=== PATIENT | female | born 1930 | race Caucasian/White ===

== ENCOUNTER 2016-03-31 23:45 | Inpatient (IN) | payer MEDICARE, OTHER ==
--- NOTE | ~2016-03-31 | US77 ---
[facility] A Service of [facility] RADIOLOGY TEXT RESULTS PATIENT: JOSE MULLIGAN LOCATION: [facility] 571-01 : 29 UNIT #: [id number] AGE: [address]: Tomasa Gonzalez MD SEX: F ORDER DR: [id number] [facility] [address] [place], [place] [address] [id number] MR#: [id number] #: [id number] NAME: JOSE MULLIGAN : 1930 SEX: F STUDY DATE/TIME: 04/01/2016 15:59 UNIT: [facility] ROOM: [facility] STUDY DESCRIPTION: US Kidney Bilateral Complete Attending Physician: Tomasa Gonzalez M.D. Ordering Physician: Reny Brady M.D. Primary Care Physician: Mildred Perdomo MEDICAL IMAGING REPORT This report is preliminary unless electronic signature is present EXAM Bilateral renal ultrasound HISTORY Acute renal insufficiency. Elevated creatinine. FINDINGS Ultrasound examination of both kidneys demonstrates simple cysts in the right kidney measuring up to 2 cm. No right hydronephrosis. No solid right renal mass. The right kidney measures approximately 10 cm in length. Evaluation of the left renal region demonstrates a large simple cyst, slightly lobulated, measuring at least 13 cm in maximal dimension. The left renal parenchyma is not clearly identified, but may be attenuated, about the periphery of this large left renal cyst. The left renal cyst appears similar to slightly larger than on CT 10/01/2008. Survey of the urinary bladder region demonstrates the bladder is not visible and is apparently decompressed. IMPRESSION 1. Large cyst in the left flank measuring at least 13 cm is likely a dominant left renal cyst corresponding to a similar finding on CT 10/01/2008. The left renal parenchyma may be attenuated about the periphery of this cyst but is poorly seen. 2. Incidental right renal cysts measure up to 2 cm. 3. The bladder is not visualized. Dictated by... Jaime Hollis M.D. [facility] A Service [facility] RADIOLOGY TEXT RESULTS PATIENT: JOSE MULLIGAN LOCATION: [facility] 571- : 29 UNIT #: [id number] AGE: [address]: Tomasa Gonzalez MD SEX: F ORDER DR: THIS IS AN ELECTRONICALLY VERIFIED REPORT Jaime Hollis M.D. at 04/02/2016 11:31 PM KOSTA/neva TD: 04/02/2016 01:37 JOB #: [id number] MEDICAL IMAGING REPORT COPY
--- NOTE | ~2016-03-31 | EKG ---
PATIENT: JOSE MULLIGAN UNIT #: [id number] Ventricular Rate: 81 BPM Atrial Rate: 81 BPM P-R Interval: 134 ms QRS Duration: 84 ms Q-T Interval: 354 ms QTC Calculation(Bezet): 411 ms P [place]: 51 degrees Calculated R [place]: -3 degrees Calculated T [place]: 54 degrees Diagnosis Line: Normal sinus rhythm Diagnosis Line: Low voltage QRS Diagnosis Line: Nonspecific ST abnormality Diagnosis Line: Abnormal ECG Diagnosis Line: No previous ECGs available Diagnosis Line: Confirmed by CARMENZA CRUZ MD ([id number]) on Diagnosis Line: 04/02/2016 5:05:33 PM INTERPRETING MD: FIONA
--- NOTE | ~2016-03-31 | A ---
[facility] Nutrition Therapy DATE: 04/04/16 Patient: JOSE MULLIGAN Physician: PEMA Address: [address] [place] [address] Room/Bed: [address] [place] [address], Zip: [place] [address] Admit Date: 04/01/16 Date of : 29 Height: Weight: 103 46.9 NUTRITIONAL ASSESSMENT: REASON: CONSULT RE: RECENT UNINTENTIONAL WEIGHT LOSS PMH: COPD, Osteoporosis Anthropometrics: Ht: 5'0"WT: 103 lbsBMI: 20.1 Labs: Na+ 140, K+ 3.0, Gluc 97 Meds: Ferrous gluconate, Vitamin B12, Vitamin D, Coumadin, Pepcid I/O & Bowel function: 695/1050 Skin Integrity: WNL Assessment: Pt is 86 year old female admitted for Hyperkalemia. Pt reports adequate PO intake prior to admission, recent unintentional weight loss of 25 lbs. Pt states weight loss was during previous admission, unable to describe time frame. Pt reports weight maintenance since discharge. Pt currently on Regular consistency diet, reports issues with chewing d/t missing teeth. Requested softer diet - will change to Dental Soft diet per MNT protocol. Pt agreed to Ensure supplements, will order. Encouraged adequate PO intake as tolerated. Pt may benefit from assistance with meals, tray set up. Dx: Inadequate nutrient intake r/t confusion/endentulous AEB reported recent unintentional weight loss Intervention: 1. Dental Soft diet 2. Ensure BID 3. Meds per MD Monitoring, Evaluation and Goals: 1. Encourage adequate PO Intake as tolerated (PO>50% of meals) 2. Prevent unintentional weight loss; maintain LBM Recommendations: 1. Change diet to Dental Soft diet 2. Add Ensure BID 3. Encourage adequate PO intake as tolerated 4. Provide assistance as needed with meals and set up [facility] Nutrition Therapy DATE: 04/04/16 Patient: JOSE MULLIGAN Physician: PEMA Address: [address] [place] [address] Room/Bed: [address] [place] [address], Zip: [place] [address] Admit Date: 04/01/16 Date of : 29 Height: Weight: 103 46.9 Will f/u per protocol - pt Moderate Nutritional Risk Respectfully, Maggy Ponce RD, LD Food and Nutritional Services [facility] cc: client file
--- NOTE | ~2016-03-31 | DS ---
Unit #: [id number] #: [id number] Patient: JOSE MULLIGAN [id number] [address] [address] [id number] I MR#: [id number] NAME: JOSE MULLIGAN ROOM: 571 Age: 86 Sex: F Admission Date: 04/01/2016 : 1930 Discharge Date: Attending Physician: Phoebe uTbbs M.D. Primary Care Physician: Mildred Perdomo DISCHARGE SUMMARY DISCHARGE DIAGNOSES 1. Hyperkalemia. 2. Toxic metabolic encephalopathy. 3. Acute kidney injury. 4. Pseudomonas urinary tract infection. 5. Iron deficiency anemia. 6. Hypokalemia during the hospitalization course. 7. History of deep vein thrombosis. The patient is not on Coumadin any more as per her family. 8. Chronic obstructive pulmonary disease. 9. History of meningioma. 10. Chronic venous stasis. 11. Osteoporosis. 12. Chronic immobility syndrome. 13. History of paroxysmal supraventricular tachycardia. 14. History of gout. 15. Gastroesophageal reflux disease. 16. 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 17. Hypomagnesemia. 18. Mild protein malnutrition. CONSULTATIONS Dr. Jorge Alberto Suarez. PROCEDURES The patient had EGD, which was normal. The patient did not go for colonoscopy because the patient is DNR and not a candidate for surgery. Therefore, colonoscopy examination is unwarranted as per gastroenterology, and her POA agreed for the plan. DIAGNOSTIC TESTING LAB DATA: WBC 7.2, hemoglobin 8.1, platelets 304. Potassium 4, sodium 140, potassium 3, creatinine 1.1, magnesium 1.5. Urine culture is growing Pseudomonas aeruginosa. Ferritin 119. IMAGING: Ultrasound of the kidneys shows large cyst in the left flank measuring 13 cm, likely dominant left renal cyst corresponding to similar findings on CT in 2008. ALLERGIES None. DISCHARGE MEDICATIONS 1. Symbicort 160 mcg 1 puff inhalation daily. Unit #: [id number] #: [id number] Patient: JOSE MULLIGAN 2. Metoprolol 25 p.o. daily. 3. Ferrous gluconate 324 p.o. daily. 4. Aspirin 81 daily. 5. Omeprazole 20 daily. 6. Visine 1 drop daily. 7. Vitamin D3 - 2,000 p.o. daily. 8. Vitamin B12 - 2,500 mcg p.o. every Sunday. 9. Levaquin 500 p.o. daily for 5 more days. HOSPITALIZATION COURSE An 86 year old admitted because of abnormal labs. Hyperkalemia. The patient was seen by Dr. Brady. The patient received calcium gluconate, IV insulin, D50 and Kayexalate. Currently potassium level is normal. Toxic metabolic encephalopathy. Secondary to Pseudomonas urinary tract infection. Currently mildly confused. She does have moderate dementia, also. Pseudomonas urinary tract infection. Sensitive to Levaquin. The patient was on IV Levaquin. The patient will be discharged home on 5 days of p.o. Levaquin. Anemia. Most likely iron deficiency. The patient had EGD, which was normal. The patient is not a candidate for colonoscopy because the patient is a DNR and nonsurgical candidate. Dr. Suarez and the family, POJose and niece, decided not to pursue colonoscopy. She will get iron tablets upon discharge. Hypokalemia during the hospitalization course. The patient received potassium. Hypomagnesemia. The patient received IV magnesium. COPD. Stable. GERD. Continue with omeprazole. History of gout. Her Allopurinol has been discontinued. DISCHARGE PLAN 1. The patient will be discharged home with home health. 2. Follow with family physician in 1 week for urinary tract infection and anemia. 3. I discussed with niece and POA. According to her, the patient is not on Coumadin any more for her remote history of DVT. initially Coumadin was in the medication list, but I discontinued it. The patient is not on Coumadin any longer. NOTE: Discharge time taken is 35 minutes. Dictated by... Phoebe Tubbs M.D. Unit #: [id number] #: [id number] Patient: JOSE MULLIGAN BIRGIT/cinda TD: 04/05/2016 10:52 JOB #: [id number] DISCHARGE SUMMARY X Phoebe Tubbs MD DISCHARGE SUMMARY
--- NOTE | ~2016-03-31 | OR ---
Unit #: [id number] #: [id number] Patient: JOSE MULLIGAN [id number] [facility]. [place], [place] [address] [id number] I MR#: [id number] NAME: JOSE MULLIGAN ROOM: 571 Date of Procedure: 04/03/2016 Admission Date: 04/01/2016 Surgeon: Jorge Alberto Suarez M.D. : 1930 Attending Physician: Phoebe Tubbs M.D. Primary Care Physician: Mildred Perdomo OPERATIVE REPORT PRIMARY CARE PHYSICIAN Mildred Perdomo A.P.R.N. PREOPERATIVE DIAGNOSIS Anemia. PROCEDURE PERFORMED Upper gastrointestinal endoscopy. POSTOPERATIVE DIAGNOSIS Completely normal examination up to third part of duodenum. RECOMMENDATIONS The patient is elderly and DNR and not a candidate for surgery. Therefore, colonoscopy examination is unwarranted. This was discussed at length with her niece, who is her POA. Suggest to manage the anemia with transfusions and supportive care as needed. SEDATION USED MAC. DESCRIPTION OF PROCEDURE Following detailed explanation of potential risks and complications of an upper endoscopy, namely perforation, bleeding and complications related to sedation, the patient was brought to GI lab and laid in the left lateral decubitus position. Lubricated tip of the Olympus video upper endoscope was passed through the bite block into the proximal esophagus under direct vision. The entire esophageal mucosa was examined and appeared normal. Z-line was nicely demarcated, there being no esophagitis or hiatus hernia. The scope was then advanced into the gastric cavity and the latter was insufflated. Mucosa of the fundus, body, and antrum was examined and appeared unremarkable. Pylorus was intubated with visualization of the normal duodenal bulb and second and third part of the duodenum. Upon withdrawal and retroflexion, the incisura, cardia, and greater curve were examined and no additional findings noted. The scope was then withdrawn into distal esophagus. The entire esophageal mucosa was examined all the way up to pharynx and no additional findings noted. The patient tolerated the procedure without any postprocedural complications. Dictated by... Jorge Alberto Suarez M.D. Unit #: [id number] #: [id number] Patient: JOSE MULLIGAN AK/angela TD: 04/04/2016 06:01 JOB #: [id number] CC: Tomasa Gonzalez M.D. OPERATIVE REPORT X Jorge Alberto Suarez MD PROCEDURE OPERATIVE NOTE
--- NOTE | ~2016-03-31 | CO ---
Unit #: [id number] #: [id number] Patient: JOSE MULLIGAN [id number] [place], [place] [address] [id number] I MR#: [id number] NAME: JOSE MULLIGAN ROOM: 571 Age: 86 Sex: F Admission Date: 04/01/2016 : 1930 Attending Physician: Tomasa Gonzalez M.D. Primary Care Physician: Mildred Perdomo Consultation Date: 04/02/2016 CONSULTATION REPORT REASON FOR CONSULTATION Anemia. HISTORY OF PRESENT ILLNESS Ms. Mulligan is an 86-year-old white female, who was admitted from home, because of abnormal labs drawn by the [facility]. Her potassium was found to be 7.6. Since after admission, she has been treated with insulin and Kayexalate and her current hemoglobin is now 4.1. During to the process, her hemoglobin has dropped from 9.5 to 7.5. The patient denies any history of overt GI bleed in the form of hematemesis, melena, or hematochezia. There is no history of abdominal pain; although, she has mild upper abdominal discomfort variably related to meals. PAST MEDICAL HISTORY Significant for history of COPD, chronic venous stasis of the legs, osteoporosis, history of supraventricular tachycardia, and history of pyelonephritis. PAST SURGICAL HISTORY Included a hysterectomy, cholecystectomy, appendectomy, open reduction of right arm, cataract extraction, left tibia and fibula fracture, left carpal tunnel release. MEDICATIONS At home included Lasix, Mobic, Symbicort, metoprolol, omeprazole, aspirin, vitamin D3, Coumadin, allopurinol, ciprofloxacin, potassium, acetaminophen, and vitamin B12. ALLERGIES No known drug allergies. SOCIAL HISTORY Lives at home. Does not smoke or drink alcohol. FAMILY HISTORY None of colon, pancreatic cancer, or liver disease. REVIEW OF SYSTEMS Detailed review of organ system does not reveal any recent weight loss. The patient denies any history of fever, chills, or rigors. No history of recent falls. No history of cough, expectoration, or hemoptysis. No history of dysuria, hematuria, or pyuria. No history of focal seizures or extremity weakness. Unit #: [id number] #: [id number] Patient: JOSE MULLIGAN PHYSICAL EXAMINATION GENERAL: She is awake and alert. She does have a slurred speech, but this is at baseline. VITAL SIGNS: Stable with a temperature of 98.3, pulse is 97 per minute and regular, respiratory rate is 12 per minute, blood pressure is 97/49. She weighs 100 pounds. HEENT: She has mild pallor. There being no icterus, lymphadenopathy, or peripheral edema. CARDIOVASCULAR: Normal heart sounds. No murmurs on auscultation. LUNGS: Reveal normal breath sounds. Good air entry. ABDOMEN: Soft, but there is a firmish feeling in the epigastric area. The patient says that this area is little bit tender; however, there is no exquisite tenderness, rigidity, rebound, or guarding. Liver and spleen not palpable. Bowel sounds normal. DIAGNOSTIC STUDIES LABORATORY RESULTS: Shows an admission hemoglobin of 9.5 and now it is 7.5. It is most likely due to hemodilution as the patient did have IV fluids after hospitalization. The BUN and creatinine are normal. CLINICAL IMPRESSION The drop in hemoglobin is most likely hemodilutional, also there is little clinical suggestion of overt GI bleed. Suggesting stool studies for occult blood and consider an upper endoscopy tomorrow. The patient is clearly not a surgical candidate and a colonoscopy is not warranted. The above plan was discussed with Ms. Mulligan and she was reassured. Thank you for asking me to see this pleasant woman. I appreciate the consult. Dictated by... Iesha Young/angela TD: 04/02/2016 13:42 JOB #: [id number] CC: Tomasa Gonzalez M.D. CONSULTATION REPORT X Jorge Alberto Suarez MD X CONSULTATION REPORT
--- NOTE | ~2016-03-31 | CO ---
Unit #: [id number] #: [id number] Patient: JOSE MULLIGAN [id number] [facility]. [place], [place] [address] [id number] I MR#: [id number] NAME: JOSE MULLIGAN ROOM: 571 Age: 86 Sex: F Admission Date: 04/01/2016 : 1930 Attending Physician: Tomasa Gonzalez M.D. Primary Care Physician: Mildred Perdomo Consultation Date: 04/01/2016 CONSULTATION REPORT REASON FOR CONSULT Hyperkalemia. Thank you very much for asking us to see this patient in consultation. HISTORY OF PRESENT ILLNESS Ms. Jose Mulligan is an 86-year-old female with a history of paroxysmal SVT, history of DVT in the past, who is here in the hospital in 02/2016 where she had UTI and some encephalopathy related to that. She was noted upon during that hospitalization to have creatinine increased a little bit during the hospitalization, but improved down to 0.7 upon discharge on 02/26/2016, although did get as high as 1.7. During the hospitalization again, she was treated for a UTI. She was discharged, I think, initially to rehab and then apparently she was at home. She had labs done by [facility] and apparently noted potassium in the mid 7s and prompted her to come to the emergency room. She was noted to have potassium of 7.6 here, increased up to 7.8. She was treated with multiple medications. Repeat potassium was 7.2, and we ordered medications as well and then I was consulted today. She actually is alert and oriented. She denies any chest pain, shortness of breath, nausea, or vomiting. PAST MEDICAL HISTORY History of PSVT, history of DVT, history of hypertension, history of UTI, history of gout, history of gastroesophageal reflux disease, history of some underlying mild dementia, history of acute delirium, history of degenerative disk disease, history of COPD. ALLERGIES No known drug allergies. SOCIAL HISTORY Previous smoker, stopped in 1997. No alcohol. MEDICATIONS It sounds like she was on Lopressor either once a day or b.i.d., KCl 40 mEq a day, vitamin D daily, B12 daily, Cipro or Levaquin there when she was here in the hospital in February unsure if it was stopped or not, Lasix 20 mg b.i.d., allopurinol 300 mg a day, Mobic, omeprazole 20 mg a day, and Coumadin. FAMILY HISTORY Noncontributory. REVIEW OF SYSTEMS Unit #: [id number] #: [id number] Patient: JOSE MULLIGAN She is actually alert again. Denies any headaches, dizziness, visual problems, or sinus problems. No cough or hemoptysis. No neck pain or neck stiffness. No chest pain or palpitations. No severe shortness of breath. No abdominal pain, nausea, vomiting, or diarrhea. No urinary symptoms. No lower extremity swelling. No recent seizures or strokes. No skin rashes. PHYSICAL EXAMINATION GENERAL: She is alert and oriented. VITAL SIGNS: Temperature is 98.3, pulse 61, respirations 13, blood pressure 70 to 126 over 40s to 60s. HEENT: She is normocephalic, atraumatic. Pupils are equal, round, and reactive to light. Extraocular muscles are intact. Hearing appears normal. Mouth is clear. No erythema. NECK: Supple. No adenopathy. CARDIAC: She is tachycardic without a rub. No S3 or S4. LUNGS: Clear bilaterally. No wheezes, rhonchi, or rales. ABDOMEN: Bowel sounds positive. Nontender. Soft. No masses felt. No hepatomegaly noted. EXTREMITIES: She has no significant lower extremity swelling. Her pulses are intact in lower extremities. SKIN: No rashes. NEUROLOGIC: Grossly intact. : Deferred. DIAGNOSTIC STUDIES LABORATORY RESULTS: Sodium initially of 134, potassium 7.6, chloride is 107, bicarb is 18, BUN of 22, creatinine 1.4, glucose of 109, calcium is 9.0. TSH is 1.05. Hemoglobin 9.5, white count 8500, platelets 156,000. UA shows specific gravity of 1.012, 2 to 5 rbc's, 5 to 10 wbc's. Culture is pending. Today's lab showed a BUN of 18, creatinine 1.3, glucose 71, bicarb is 15, calcium was 10.0, magnesium is 1.9, her potassium 7.2. ASSESSMENT AND PLAN 1. Hyperkalemia. The patient with increased potassium still although slightly better, but elevated. She is tachycardic, but her monitor does not show peaked T-waves. She has received multiple medications for this hyperkalemia several times in the emergency room. Last just recently given was calcium gluconate, IV insulin, D50, Kayexalate. Hope we will recheck a stat BMP in about 3 hours and hopefully potassium continues to come down. If worsens or is not improving, we will have to consider emergent hemodialysis. Discussed this with the patient. She agrees. Certainly, the hyperkalemia is related to her potassium pills probably intravascularly depleted, questionable Mobic, as well as her acidosis all contributing. We should be able to get it down with treatment. 2. Acute renal insufficiency. Creatinine is a little bit better. She does look a little prerenal on exam, also was on Lasix and Mobic at home. It could be contributing. We will start her on some IV fluids with bicarb. Check a bladder scan postvoid residual. Check a renal ultrasound. Check urinary studies also, rule out interstitial nephritis from quinolones. We will discontinue her allopurinol and PPI for now, switched over to Pepcid. 3. History of urinary tract infection, culture pending. 4. History of deep venous thrombosis, on Coumadin. 5. History of supraventricular tachycardia. Thank you very much. Unit #: [id number] #: [id number] Patient: JOSE MULLIGAN Dictated by.Morgan Brady M.D. LISA/angela TD: 04/02/2016 04:29 JOB #: [id number] CONSULTATION REPORT X Slim Brady MD X CONSULTATION REPORT
--- NOTE | ~2016-03-31 | HP ---
Unit #: [id number] #: [id number] Patient: JOSE MULLIGAN [id number] [facility]. [place], [place] [address] [id number] I MR#: [id number] NAME: JOSE MULLIGAN ROOM: 34249 Age: 86 Sex: F Admission Date: 04/01/2016 : 1930 Attending Physician: Tomasa Gonzalez M.D. Primary Care Physician: Mildred Perdomo HISTORY AND PHYSICAL HISTORY OF PRESENT ILLNESS The patient is an 86-year-old female who was discharged in February 2016 and later on readmitted. Today she came into the emergency room for abnormal labs. She was sent here for abnormal by [facility]. Per [facility] staff, potassium was 7.6. On evaluation in the emergency room, her potassium was elevated as such. She has been seen by the apartment rental clerk since she was admitted and she did receive calcium gluconate, Regular insulin, Kayexalate and bolus and amp of D50. The patient denies any chest pain, no headache, or shortness of breath or difficulty breathing. She has a history of COPD with supraventricular tachycardia, who was admitted back in February for pyelonephritis and altered mental status metabolic encephalopathy. She denies any pain or complaints at this time. PAST MEDICAL HISTORY Significant for: 1. COPD. 2. Meningioma. 3. Chronic venous stasis of her leg. 4. Osteoporosis. PAST SURGICAL HISTORY 1. Appendectomy. 2. Cholecystectomy. 3. Hysterectomy. 4. Open reduction internal fixation of right arm. 5. Cataract extraction. 6. Left carpal tunnel release. 7. Left tib-fib fracture. HOME MEDICATIONS Include: 1. Lasix 20 mg p.o. b.i.d. 2. Mobic 7.5 mg p.o. daily. 3. Symbicort 160/4.5 one puff inhalation daily. 4. Metoprolol tartrate 25 mg p.o. daily. 5. Omeprazole 20 mg p.o. daily. 6. Aspirin 81 mg p.o. daily. 7. Vitamin D3 2000 units p.o. daily. 8. Visine one drop each eye daily. 9. Coumadin 1 mg p.o. daily. 10. Allopurinol 300 mg p.o. daily. 11. Ciprofloxacin 500 mg p.o. daily. 12. Potassium 14 mEq p.o. daily. Unit #: [id number] #: [id number] Patient: JOSE MULLIGAN 13. Acetaminophen. 14. Vitamin B12. ALLERGIES No known drug allergies. SOCIAL HISTORY Lives alone. History of smoking. Denies any alcohol use. FAMILY HISTORY Noncontributory. REVIEW OF SYSTEMS Limited at this time. Patient is a poor historian, however denies any pain at this time. PHYSICAL EXAMINATION VITAL SIGNS: Blood pressure 126/50, pulse 60, respiratory 16, temperature 97.1, saturation 97% on oxygen. GENERAL: She was comfortable, pleasant, very pale in appearance. EYES: Pupils were equal and reacted to light and accommodation. Pupils were 4 mm bilateral, bilaterally symmetrical and equal. LUNGS: Breath sounds along the bases posteriorly. HEART: First and second heart sounds only. ABDOMEN: Full, moves with respirations, soft. No hepatosplenomegaly that I could appreciate. EXTREMITIES: Mild edema. NEUROLOGIC: Alert and oriented x2. Moves all extremities spontaneously. Looking very weak. DIAGNOSTIC STUDIES LABORATORY: Chemistries with glucose 71, BUN 18, creatinine 1.3, sodium 140, potassium 7.2, chloride 120, bicarbonate 15. She had CBC with WBC of 8.4, hemoglobin 9.5, hematocrit 29.5, platelet count 156. ASSESSMENT AND PLAN 1. Hyperkalemia. Nephrology has been consulted. She has received D50. Etiology may include the potassium pills that she is taking in addition to her Lasix in addition to her acute renal failure. 2. Debility. 3. History of urinary tract infection. 4. History of paroxysmal supraventricular tachycardia. PLAN 1. Follow up with nephrology. 2. Follow up with her labs in the morning. 3. CBC and BMP in the morning as ordered. 4. CODE STATUS: Unable to determine at this time. Dictated by Tomasa Gonzalez M.D. Unit #: [id number] #: [id number] Patient: JOSE MULLIGAN KODI/jim TD: 04/01/2016 17:38 JOB #: [id number] HISTORY AND PHYSICAL X Tomasa Gonzalez MD HISTORY AND PHYSICAL
[~2016-03-31 23:45] MED LIST: ACETAMINOPHEN PO; ACETAMINOPHEN PR; ACETAMINOPHEN325 MG; ALLOPURINOL300 MG PO; AMOXICILLIN PO; ANTIVERT PO; ARTHRITIS PAIN650 M2 PO; ASPIRIN EC81 M1 PO; ASPIRIN PO; ASPIRIN81 MG PO; ASTHMACORT; AUGMENTIN875 M1 PO; AZMACORT20 GM INH; CALCIUM 500 + D1 TAB PO; CIPRO PO; COMBIVENT INH14.7 GM INH; COUMADIN PO; DARVOCET-N 1001 TAB PO; DEMADEX10 MG PO; DOXYCYCLINE150 MG PO; EC-NAPROSYN500 MG PO; ERYTHROMYCIN O3.5 GM OP; FOSAMAX PO; GAS-X166 MG PO; IMODIUM2 MG PO; KCL PO; KEFLEX PO; LASIX PO; LASIX20 MG PO; LEVAQUIN PO; LEVAQUIN750 MG PO; MEDROL PO; MELOXICAM15 MG PO; METOPROLOL TAR25 MG PO; METOPROLOL TART25 MG PO; MOBIC PO; NEXIUM PO; OMEPRAZOLE20 M1 PO; OMEPRAZOLE20 M2 PO; PERCOCET5/325 PO; PREDNISONE PO; ST JOSEPH ASPIR81 MG PO; SYMBICORT 160/4.6 G1 IH; SYMBICORT IH; SYMBICORT INH; TOBRAMYCIN-DEXAM5 M1 OP; TORSEMIDE PO; ULTRAM PO; VICODIN 5/500 T1 TAB PO; VISINE-A EYE DR15 M1 OP; VISINE15 ML OP; VISINE15 ML OU; VIT B-12 PO; VITAMIN A AND D PO; VITAMIN D-32000 UNI1 PO; VITAMIN D2000 UNIT PO; VITAMIN D32000 UNI1 PO
[2016-04-01 02:07] LABS: CALCIUM SERUM 9.4 mg/dL (8.4-10.2); CREATININE SERUM 1.4 mg/dL (0.6-1.4); GLOM FILT RATE Estimated 37.8 mL/min (>60)
[2016-04-01 02:09] LABS: POTASSIUM 7.8 mmol/L (3.5-5.1)
[2016-04-01 03:23] LABS: BASOPHIL% 0.6 % (0-2.5); EOSINOPHIL# 0.8 X10e3 (0-0.7); HEMATOCRIT 29.5 % (35.0-45.0); HEMOGLOBIN 9.5 gm/dL (12.0-16.0); LYMPHOCYTE# 2.2 X10e3 (1.0-3.5); LYMPHOCYTE% 26.6 % (17.0-45.0); MEAN CELL VOLUME 103.4 FL (83-96); MEAN CORPUSCULAR HEMOGLOBIN 33.5 PG (28-34); MEAN CORPUSCULAR HGB CONC 32.4 g/dL (30-36); MEAN PLATELET VOLUME 8.3 FL (6.5-11.5); MONOCYTE# 1.1 X10e3 (0-1.0); MONOCYTE% 13.7 % (3.0-12.0); NEUTROPHIL# 4.1 X10e3 (1.5-7.1); NEUTROPHIL% 49.1 % (40-75); PLATELET COUNT 156 X10e3 (140-420); RED BLOOD COUNT 2.85 X10e (3.90-5.30); RED CELL DISTRIBUTION WIDTH 15.5 % (11.0-15.5); WHITE BLOOD COUNT 8.4 X10e3 (4.0-10.5)
[2016-04-01 03:26] LABS: INR 1.1; PARTIAL THROMBOPLASTIN TIME 25.9 SECONDS (23.5-31.3); PROTHROMBIN TIME (PATIENT) 11.5 SECONDS (9.6-11.5)
[2016-04-01 03:29] LABS: DIFF IND NO
[2016-04-01 03:36] LABS: BUN/CREATININE RATIO 15.38; CALCIUM SERUM 9.4 mg/dL (8.4-10.2); CREATININE SERUM 1.3 mg/dL (0.6-1.4); GLOM FILT RATE Estimated 41.2 mL/min (>60)
[2016-04-01 03:44] LABS: POTASSIUM 7.2 mmol/L (3.5-5.1)
[2016-04-01 03:45] LABS: POC - CKMB 4.4 ng/mL (0.0-7.9); POC - TROPONIN <0.05 ng/mL (<=0.05)
[2016-04-01 09:55] LABS: URINE SOURCE CLEAN CATCH
[2016-04-01 09:56] LABS: BUN/CREATININE RATIO 13.84; CREATININE SERUM 1.3 mg/dL (0.6-1.4); GLOM FILT RATE Estimated 41.2 mL/min (>60)
[2016-04-01 10:00] LABS: URINE APPEARANCE CLEAR; URINE BILIRUBIN NEG (NEG); URINE BLOOD NEG (NEG); URINE COLOR YELLOW; URINE GLUCOSE NEG (NEG); URINE KETONE NEG (NEG); URINE LEUKOCYTE ESTERASE 2+ (NEG); URINE NITRATE NEG (NEG); URINE PROTEIN NEG (NEG); URINE SPECIFIC GRAVITY 1.012 (1.003-1.035); URINE UROBILINOGEN 0.2 MG/DL (NEG)
[2016-04-01 10:03] LABS: CULTURE INDICATED? YES; URINE BACTERIA AUWI NEG (NEGATIVE); URINE SQUAMOUS EPITHELIAL CELL OCC /[HPF]
[2016-04-01 10:20] LABS: POTASSIUM 7.2 mmol/L (3.5-5.1)
[2016-04-01 16:47] LABS: BUN/CREATININE RATIO 13.33; CREATININE SERUM 1.2 mg/dL (0.6-1.4); GLOM FILT RATE Estimated 45.2 mL/min (>60)
[2016-04-01 16:48] LABS: POTASSIUM 6.2 mmol/L (3.5-5.1)
[2016-04-02 00:16] LABS: BUN/CREATININE RATIO 10.83; CALCIUM SERUM 8.7 mg/dL (8.4-10.2); CREATININE SERUM 1.2 mg/dL (0.6-1.4); GLOM FILT RATE Estimated 45.2 mL/min (>60); POTASSIUM 4.8 mmol/L (3.5-5.1)
[2016-04-02 06:39] LABS: BASOPHIL% 0.5 % (0-2.5); EOSINOPHIL# 0.4 X10e3 (0-0.7); EOSINOPHIL% 4.7 % (0.0-7.0); HEMATOCRIT 22.9 % (35.0-45.0); HEMOGLOBIN 7.5 gm/dL (12.0-16.0); LYMPHOCYTE% 24.1 % (17.0-45.0); MEAN CELL VOLUME 101.3 FL (83-96); MEAN CORPUSCULAR HEMOGLOBIN 33.1 PG (28-34); MEAN CORPUSCULAR HGB CONC 32.7 g/dL (30-36); MEAN PLATELET VOLUME 7.6 FL (6.5-11.5); MONOCYTE# 1.2 X10e3 (0-1.0); MONOCYTE% 15.1 % (3.0-12.0); NEUTROPHIL# 4.5 X10e3 (1.5-7.1); NEUTROPHIL% 55.6 % (40-75); PLATELET COUNT 163 X10e3 (140-420); RED BLOOD COUNT 2.26 X10e (3.90-5.30); RED CELL DISTRIBUTION WIDTH 15.2 % (11.0-15.5); WHITE BLOOD COUNT 8.1 X10e3 (4.0-10.5)
[2016-04-02 06:50] LABS: DIFF IND NO
[2016-04-02 07:08] LABS: ALBUMIN SERUM 2.4 g/dL (3.5-5.0); BILIRUBIN,TOTAL 0.3 mg/dL (0.2-2.0); CALCIUM SERUM 8.4 mg/dL (8.4-10.2); CREATININE SERUM 1.3 mg/dL (0.6-1.4); GLOM FILT RATE Estimated 41.2 mL/min (>60); MAGNESIUM 1.2 mg/dL (1.6-3.0); PHOSPHOROUS 3.6 mg/dL (2.5-4.6); POTASSIUM 4.1 mmol/L (3.5-5.1); PROTEIN TOTAL SERUM 4.7 g/dL (6.0-8.3)
[2016-04-03 15:59] LABS: HEMATOCRIT 27.4 % (35.0-45.0); HEMOGLOBIN 8.8 gm/dL (12.0-16.0); MEAN CELL VOLUME 102.4 FL (83-96); MEAN CORPUSCULAR HEMOGLOBIN 32.8 PG (28-34); RED BLOOD COUNT 2.68 X10e (3.90-5.30); RED CELL DISTRIBUTION WIDTH 15.2 % (11.0-15.5); WHITE BLOOD COUNT 9.7 X10e3 (4.0-10.5)
[2016-04-03 16:11] LABS: MAGNESIUM 1.7 mg/dL (1.6-3.0)
[2016-04-03 16:15] LABS: INR 1.1; PROTHROMBIN TIME (PATIENT) 11.4 SECONDS (9.6-11.5)
[2016-04-03 16:17] LABS: BUN/CREATININE RATIO 10.83; CALCIUM SERUM 8.1 mg/dL (8.4-10.2); CREATININE SERUM 1.2 mg/dL (0.6-1.4); GLOM FILT RATE Estimated 45.2 mL/min (>60)
[2016-04-04 06:15] LABS: HEMATOCRIT 26.2 % (35.0-45.0); HEMOGLOBIN 8.5 gm/dL (12.0-16.0); MEAN CELL VOLUME 102.1 FL (83-96); MEAN CORPUSCULAR HGB CONC 32.3 g/dL (30-36); MEAN PLATELET VOLUME 6.7 FL (6.5-11.5); RED BLOOD COUNT 2.56 X10e (3.90-5.30); RED CELL DISTRIBUTION WIDTH 14.9 % (11.0-15.5); WHITE BLOOD COUNT 9.5 X10e3 (4.0-10.5)
[2016-04-04 06:43] LABS: INR 1.2; PROTHROMBIN TIME (PATIENT) 12.6 SECONDS (9.6-11.5)
[2016-04-04 07:10] LABS: BUN/CREATININE RATIO 10.9; CALCIUM SERUM 8.5 mg/dL (8.4-10.2); CREATININE SERUM 1.1 mg/dL (0.6-1.4); GLOM FILT RATE Estimated 49.9 mL/min (>60); MAGNESIUM 1.5 mg/dL (1.6-3.0); URIC ACID 3.8 mg/dL (2.6-7.2)
[2016-04-05 08:13] LABS: HEMATOCRIT 24.7 % (35.0-45.0); HEMOGLOBIN 8.1 gm/dL (12.0-16.0); MEAN CELL VOLUME 102.6 FL (83-96); MEAN CORPUSCULAR HEMOGLOBIN 33.6 PG (28-34); MEAN CORPUSCULAR HGB CONC 32.7 g/dL (30-36); MEAN PLATELET VOLUME 6.8 FL (6.5-11.5); RED BLOOD COUNT 2.41 X10e (3.90-5.30); WHITE BLOOD COUNT 7.2 X10e3 (4.0-10.5)
[2016-04-05 09:00] LABS: CALCIUM SERUM 8.9 mg/dL (8.4-10.2); GLOM FILT RATE Estimated 55.7 mL/min (>60); MAGNESIUM 1.6 mg/dL (1.6-3.0); POTASSIUM 3.4 mmol/L (3.5-5.1)
[2016-04-05] MEDS ORDERED: FERROUS GL324 ( 36 ) PO (15:05)
== END 2016-04-05 18:39 | disposition home health service (06) | DRG 640 ==
LOC: CED 23:45 → CEDOF 04-01 02:55 → C5C 04-01 17:59
PROVIDERS: Family Medicine; Internal Medicine; Internal Medicine Nephrology; Student in an Organized Health Care Education/Training Program
PROC: 0DJ08ZZ Inspection of Upper Intestinal Tract, Via Natural or Artificial Opening Endoscopic (ICD-10-PCS; principal; 2016-04-01)
DX: E87.5 Hyperkalemia (principal); G92 Toxic encephalopathy; N17.9 Acute kidney failure, unspecified; N39.0 Urinary tract infection, site not specified; I47.1 Supraventricular tachycardia; E44.1 Mild protein-calorie malnutrition; B96.5 Pseudomonas (aeruginosa) (mallei) (pseudomallei) as the cause of diseases classified elsewhere; D50.9 Iron deficiency anemia, unspecified; E87.6 Hypokalemia; Z86.718 Personal history of other venous thrombosis and embolism; J44.9 Chronic obstructive pulmonary disease, unspecified; I87.8 Other specified disorders of veins; M81.0 Age-related osteoporosis without current pathological fracture; M62.3 Immobility syndrome (paraplegic); K21.9 Gastro-esophageal reflux disease without esophagitis; F03.90 Unspecified dementia, unspecified severity, without behavioral disturbance, psychotic disturbance, mood disturbance, and anxiety; E83.42 Hypomagnesemia; M10.9 Gout, unspecified; Z90.710 Acquired absence of both cervix and uterus; Z90.49 Acquired absence of other specified parts of digestive tract; Z98.49 Cataract extraction status, unspecified eye; Z79.82 Long term (current) use of aspirin; Z79.01 Long term (current) use of anticoagulants; G30.9 Alzheimer's disease, unspecified; F02.80 Dementia in other diseases classified elsewhere, unspecified severity, without behavioral disturbance, psychotic disturbance, mood disturbance, and anxiety
CPT/HCPCS: 36415; 76770; 80048; 80053; 81003; 82550; 82553; 82728; 82947; 83540; 83550; 83735; 84100; 84132; 84300; 84484; 84550; 85025; 85027; 85610; 85730; 87086; 87088; 87186; 89190; 93005; 94640; 94664; 94760; 97116; 97162; 97166; 97530; 99285; G8978-GP; G8979-GP; G8987-GO; G8988-GO; J0610; J0696; J1940; J1956; J2916; J3475

== ENCOUNTER 2016-04-07 21:31 | Inpatient (IN) | payer MEDICARE, OTHER ==
--- NOTE | ~2016-04-07 | CR72 ---
[facility] A Service of [facility] & [facility] RADIOLOGY TEXT RESULTS PATIENT: JOSE MULLIGAN LOCATION: [place] [address] : 29 UNIT #: [id number] AGE: [address]: Kodi Holloway MD SEX: F ORDER DR: [id number] [facility] [address] [facility]. [place], [place] [address] [id number] MR#: [id number] Acc #: [id number] NAME: JOSE MULLIGAN : 1930 SEX: F STUDY DATE/TIME: 04/07/2016 21:38 UNIT: [facility] ROOM: STUDY DESCRIPTION: CR Chest Single View Portable Attending Physician: Jessica Loredo M.D. Ordering Physician: Jessica Loredo M.D. Primary Care Physician: Mildred Perdomo MEDICAL IMAGING REPORT This report is preliminary unless electronic signature is present EXAM Portable chest HISTORY Weakness after fall today. FINDINGS The cardiac size is near the upper limits of normal. Normal pulmonary vascularity. No airspace infiltrates or effusions. Degenerative changes in both shoulders. Calcified subcarinal nodes. Linear atelectasis or scarring in the right mid lung. Multiple right rib fracture deformities. IMPRESSION No acute findings. No active disease in the lungs. Dictated by... Jaime Hollis M.D. THIS IS AN ELECTRONICALLY VERIFIED REPORT Jaime Hollis M.D. at 04/08/2016 3:37 PM DFL/benton TD: 04/08/2016 01:31 JOB #: [id number] MEDICAL IMAGING REPORT COPY
--- NOTE | ~2016-04-07 | CT71 ---
[facility] A Service of [facility] RADIOLOGY TEXT RESULTS PATIENT: JOSE MULLIGAN LOCATION: [facility] [address] : 29 UNIT #: [id number] AGE: [address]: Deon Schroeder MD SEX: F ORDER DR: [id number] [facility] [address] [place], [place] [address] [id number] I MR#: [id number] Acc #: [id number] NAME: JOSE MULLIGAN : 1930 SEX: F STUDY DATE/TIME: 04/08/2016 0:38 UNIT: [facility] ROOM: 54349 STUDY DESCRIPTION: CT Head Wo Contrast Attending Physician: Kodi Holloway M.D. Ordering Physician: Jessica Loredo M.D. Primary Care Physician: Mildred Perdomo MEDICAL IMAGING REPORT This report is preliminary unless electronic signature is present EXAM CT head without IV contrast COMPARISON February 23, 2016 and October 07, 2008. INDICATIONS 86-year-old female with confusion and altered mental status after syncope today at which time she fell and hit her head. Patient reports current dizziness. TECHNIQUE This CT exam was performed with one or more of the following radiation dose reduction techniques: automatic control, adjustment of mA and/or kV according to patient size, and iterative reconstruction. FINDINGS There is diffuse osteopenia. There is a chronic small right mastoid effusion. Otherwise the mastoid air cells, middle ears and paranasal sinuses are well-aerated. There are calcifications in the bilateral cavernous internal carotid arteries. There is a rounded calcification inner table of the skull in the high right parietal region abutting the falx, possibly reflecting a calcified meningioma. This measures up to 1.5 cm. There is another calcium density extraaxial abutting the parietal lobe on the right measuring up to 7 mm, possibly representing an exostosis but partly calcified meningioma is suspected. There may be other partly calcified meningiomas versus dural calcification overlying the bilateral high frontal lobes. Multiple other calcifications along the inner table of the calvaria which actually appear to be contiguous with the calvaria likely reflecting exostoses. There is a persistent midline calcification just posterior to the pineal gland, possibly reflecting dural calcification or partly calcified meningioma, measuring up to 1.4 cm. There is stable moderate cerebral and cerebellar volume loss. No mass [facility] A Service of [facility] RADIOLOGY TEXT RESULTS PATIENT: JOSE MULLIGAN LOCATION: [facility] 462-01 : 29 UNIT #: [id number] AGE: [address]: Deon Schroeder MD SEX: F ORDER DR: effect. No abnormal extraaxial fluid collection. No evidence of acute intracranial hemorrhage. There are chronic bifrontal periventricular small vessel ischemic changes. No convincing evidence of acute ischemia. IMPRESSION 1. No acute intracranial abnormality. Stable moderate cerebral and cerebellar volume loss. 2. There are multiple exostoses of the inner table of the calvaria. However there are calcifications seen in the extraaxial space, 1 of which is posterior to the pineal gland the other which is in the high right parietal lobe measuring up to 1.4 cm and 1.5 cm respectively. These findings could possibly represent partially calcified meningiomas. If indicated outpatient brain MRI with IV contrast could be performed for further characterization. 3. Small chronic right mastoid effusion. Dictated by... Mitchell Martinez M.D. THIS IS AN ELECTRONICALLY VERIFIED REPORT Mitchell Martinez M.D. at 04/12/2016 7:32 AM GM/neva TD: 04/08/2016 06:38 JOB #: [id number] MEDICAL IMAGING REPORT COPY
--- NOTE | ~2016-04-07 | CO ---
Unit #: [id number] #: [id number] Patient: JOSE MULLIGAN [id number] [facility]. [place], [place] [address] [id number] I MR#: [id number] NAME: JOSE MULLIGAN ROOM: 462 Age: 86 Sex: F Admission Date: 04/08/2016 : 1930 Attending Physician: Deon Schroeder M.D. Primary Care Physician: Mildred Perdomo Consultation Date: 04/09/2016 CONSULTATION REPORT ATTENDING PHYSICIAN Dr. Kodi Holloway. PRIMARY CARE PHYSICIAN Mildred Perdomo APRN. REASON FOR CONSULTATION Nausea, vomiting, and diarrhea. HISTORY OF PRESENT ILLNESS Ms. Mulligan is a very pleasant 86-year-old white female, who was recently seen by me a week ago while she was in the hospital. Apparently, the patient fell at home and was brought to the emergency room by her niece, who supposed to be her POA. She brought the patient to the emergency room to be checked also that she does not have any fractures. Apparently, patient had a bout of nausea and vomiting in the emergency room and bout of diarrhea and she was thus admitted, and I am asked to see her because of these complaints. Since after admission, the patient has not had any bowel movement nor any nausea or vomiting. There is no history any prior GI symptoms. PAST MEDICAL HISTORY Significant for history of COPD, osteoporosis, supraventricular tachycardia, pyelonephritis, venous stasis of the legs. Recently, she was admitted with anemia and underwent an upper GI endoscopy and packed cell transfusion. PAST SURGICAL HISTORY Included a cholecystectomy, hysterectomy, appendectomy, open reduction of the right arm, cataract extraction, left tibia and fibular fracture, and left carpal tunnel release. MEDICATIONS At home included Lasix, Mobic, Symbicort, metoprolol, omeprazole, aspirin, vitamin D3, allopurinol, ciprofloxacin, potassium, acetaminophen, vitamin B12, and Coumadin. ALLERGIES She has no known drug allergies. SOCIAL HISTORY Normally, the patient lives at home, but currently she was at a rehab center. She does not smoke or drink alcohol. Unit #: [id number] #: [id number] Patient: JOSE MULLIGAN FAMILY HISTORY None of colon, pancreatic cancer, or liver disease. REVIEW OF SYSTEMS Detailed review of organ systems does not reveal any recent weight loss. No history of fever, chills, or rigors. No history of headache, seizures, chest pain, or syncope. There is history of recent falls as mentioned above. No history of cough, expectoration, or hemoptysis. No history of dysuria, hematuria, or pyuria. No history of focal seizures or extremity weakness. Rest of the review of organ systems is unremarkable. PHYSICAL EXAMINATION GENERAL: She is awake, alert, and oriented, and appears comfortable. VITAL SIGNS: Stable with a temperature of 98.1, pulse is 90 per minute and regular, respiratory rate is 18, and blood pressure is 133/68. HEENT: She has mild pallor. There being no icterus, lymphadenopathy, or peripheral edema. CARDIOVASCULAR: Normal heart sounds. No murmurs on auscultation. LUNGS: Normal breath sounds. Good air entry. ABDOMEN: Soft and nontender. Liver and spleen are not palpable. Bowel sounds normal. DIAGNOSTIC STUDIES LABORATORY RESULTS: Shows a stool study for C. diff, which is negative. Her hemoglobin is 7.3 with elevated MCV and this is close to baseline. CLINICAL IMPRESSION The patient with nausea, vomiting, and diarrhea, a single episode which has now not recurred. Her C. diff toxin is negative. Recent history of recurrent falls and history of macrocytic anemia. Detailed discussion was held with the patient's niece and it was felt that there is a little rhyme or reason to repeat her upper endoscopy. The patient is not a candidate for colonoscopy in view of the fact of her advanced age and the fact that she is not a surgical candidate, therefore suggest giving ferrous gluconate 250 mg IV for the next three doses. Also, repeat CBC and CMP in the morning. Just in case, if the patient has ongoing diarrhea, we will consider a limited sigmoidoscopy. Also, obtain stool studies for occult blood. Thank you very much for asking me to see this pleasant woman. I appreciate the consult. Dictated by... Iesha Young/angela TD: 04/14/2016 14:35 JOB #: [id number] Unit #: [id number] #: [id number] Patient: JOSE MULLIGAN CONSULTATION REPORT X Jorge Alberto Suarez MD CONSULTATION REPORT
--- NOTE | ~2016-04-07 | HP ---
Unit #: [id number] #: [id number] Patient: JOSE MULLIGAN [id number] [facility] [address]. [place], [place] [address] [id number] I MR#: [id number] NAME: JOSE MULLIGAN ROOM: 462 Age: 86 Sex: F Admission Date: 04/08/2016 : 1930 Attending Physician: Kodi Holloway M.D. Primary Care Physician: Mildred Perdomo HISTORY AND PHYSICAL DIAGNOSIS ON ADMISSION Diarrhea. HISTORY OF PRESENT ILLNESS Ozodgc-fmyjm-etwd-old female, presented to [facility] emergency room with hypertension. The patient stated that she had a fall at home yesterday and was not able to get up. As per the patient, her niece called the ambulance. The patient states that she is having diarrhea for the last two days which is getting worse. The patient states that she hurt her left elbow. But states that the pain is much better now. The patient denies any abdominal pain, nausea, and vomiting. But she is concerned about diarrhea which stated that she has gone kkzo-df-luqa times with loose stools. She denies any blood in her stools. She denies headache or visual problems. There is no history of sore throat, sinus congestion, or skin rash. The patient denies any recent weight loss or loss of appetite. Rest of the review of systems is negative. PAST MEDICAL HISTORY 1. The patient was admitted to [facility] from to 04/05/2016 and was treated for hyperkalemia, acute toxic metabolic encephalopathy and had a pseudomonas urinary tract infection. The patient also had an EGD done which was normal. 2. History of chronic obstructive pulmonary disease. 3. Meningitis. 4. Chronic venous insufficiency. 5. Chronic obstructive pulmonary disease. 6. Paroxysmal supraventricular tachycardia. 7. Gout. PAST SURGICAL HISTORY 1. Appendectomy. 2. Hysterectomy. 3. Cholecystectomy. 4. Right arm fracture and open reduction and internal fixation. 5. Cataract extraction. 6. Left carpal tunnel release. 7. Left fib fracture. ALLERGIES No known drug allergies. HOME MEDICATIONS 1. Symbicort 160/4.5 mcg one puff daily Unit #: [id number] #: [id number] Patient: JOSE MULLIGAN 2. Metoprolol 25 mg daily 3. Prilosec 20 mg daily 4. Enteric coated aspirin 81 mg p.o. daily 5. Vitamin D 2000 units daily 6. Visine eye drops 7. Vitamin B12 8. Ferrous gluconate SOCIAL HISTORY The patient lives alone. She denies smoking or drinking. FAMILY HISTORY Noncontributory. DIAGNOSTIC STUDIES LABORATORY: Labs on admission, the patient's creatinine is 1.3, sodium 143, potassium 4.4. BNP was 186. White blood count was 17.6, hemoglobin was 8.5. Platelet count was 349. Urine culture on 04/08 revealed (1) . IMAGING: CT scan of head did not reveal any acute finding. Chest x-ray did not reveal any acute finding. ASSESSMENT/PLAN Ysirrm-lbzjq-rrer-old female is admitted to the hospital with a fall and diarrhea. 1. Diarrhea. We need to rule out stool for C. difficile as the patient was started on antibiotics. We will currently treat the patient empirically with Flagyl. 2. Status post fall. We will ask physical therapy and occupational therapy to see the patient in consultation. 3. History of recent urinary tract infection. We will treat the patient with antibiotics. 4. Gastroesophageal reflux disease, will continue on Prilosec. 5. Chronic obstructive pulmonary disease, stable. The plan was discussed in detail with the patient who showed complete understanding. I tried to call the patient's niece. Dictated by Iesha Teague/deidre TD: 04/08/2016 12:42 JOB #: [id number] Unit #: [id number] #: [id number] Patient: JOSE MULLIGAN HISTORY AND PHYSICAL X Deon Schroeder MD HISTORY AND PHYSICAL
--- NOTE | ~2016-04-07 | DS ---
Unit #: [id number] #: [id number] Patient: JOSE MULLIGAN [id number] [facility] [address]. [place], [place] [address] [id number] I MR#: [id number] NAME: JOSE MULLIGAN ROOM: 462 Age: 86 Sex: F Admission Date: 04/08/2016 : 1930 Discharge Date: 04/13/2016 Attending Physician: Deon Schroeder M.D. Primary Care Physician: Mildred Perdomo DISCHARGE SUMMARY DIAGNOSIS ON ADMISSION Diarrhea. DIAGNOSES ON DISCHARGE 1. Diarrhea, secondary to acute colitis, improved. 2. Tachy/corazon syndrome. 3. Paroxysmal atrial fibrillation, converted to sinus rhythm. 4. Hypertension. 5. Recent acute pseudomonal urinary tract infection. 6. Paroxysmal atrial fibrillation. 7. Gastroesophageal reflux disease. 8. Chronic obstructive pulmonary disease. 9. History of fall. CONSULTATIONS 1. Dr. Lyon in cardiac consultation. 2. Dr. Jorge Alberto Suarez in GI consultation. DIAGNOSTIC STUDIES LABORATORY: The patient's creatinine is 0.7, sodium 138, potassium 4.1. WBC 6.6, hemoglobin 10.6, platelet count 220,000. The patient's stool for occult blood was negative. Stool for Clostridium difficile was negative. BNP was 186. IMAGING: Chest x-ray did not reveal any active disease. CT scan of head did not reveal any acute intracranial abnormality. There were multiple calcifications present which could represent calcified meningiomas. Left elbow x-ray did not reveal any acute finding. ASSESSMENT AND PLAN 1. An 86-year-old female presented to the [facility] with diarrhea. The patient was recently diagnosed with acute Pseudomonas urinary tract infection as well. Stool for Clostridium difficile came back negative. She was seen by Dr. Jorge Alberto Suarez in consultation but her diarrhea resolved and stool for Clostridium difficile is negative. 2. Acute Pseudomonas urinary tract infection: The patient has received IV antibiotics for acute Pseudomonas. 3. Tachy/corazon syndrome: The patient had tachycardia and bradycardia and it was thought she has tachy/corazon syndrome, was seen by Dr. Lyon in consult. She also was in atrial fibrillation. She was Unit #: [id number] #: [id number] Patient: JOSE MULLIGAN given amiodarone and has converted to sinus rhythm. It was decided that patient does not need any anticoagulation. 4. The patient's urine culture was done which revealed yeast. Today patient is comfortable, is not in any acute distress. PHYSICAL EXAMINATION VITAL SIGNS: Reveal temperature of 97.4, pulse is 94 per minute, respiratory rate is 14 per minute, blood pressure is 145/60. HEENT: Revealed no conjunctival congestion. Sclerae is nonicteric. NECK: Supple. Trachea central. RESPIRATORY: Revealed breath sounds equal bilaterally. There are no wheezes or crackles. HEART: Regular rate and rhythm. SKIN: Warm and dry. NEUROLOGIC: Strength is 4+ bilaterally. RECOMMENDATIONS ON DISCHARGE Condition is stable. Activity is as tolerated. MEDICATIONS 1. Symbicort one puff daily. 2. Amiodarone 200 mg b.i.d. for next three days and then one p.o. every morning. 3. Ferrous gluconate one tablet p.o. daily. 4. Enteric coated aspirin 81 mg p.o. daily. 5. Florastor 250 mg p.o. daily for one week. 6. Vitamin D3 at 2000 units daily. 7. Vitamin B12 at 2500 mcg p.o. q. week. 8. Diflucan 100 mg p.o. daily for three days. DISPOSITION The patient will be transferred to rehab. Please feel free to call us if there are any questions regarding this hospitalization. Please make note, the plan was discussed with Dr. Lyon. Dictated by... Iesha Teague TD: 04/13/2016 09:52 JOB #: [id number] DISCHARGE SUMMARY X Deon Schroeder MD X DISCHARGE SUMMARY
--- NOTE | ~2016-04-07 | EKG ---
PATIENT: JOSE MULLIGAN UNIT #: [id number] Ventricular Rate: 107 BPM Atrial Rate: 107 BPM P-R Interval: 122 ms QRS Duration: 80 ms Q-T Interval: 340 ms QTC Calculation(Bezet): 453 ms P [place]: 48 degrees Calculated R [place]: 4 degrees Calculated T [place]: 78 degrees Diagnosis Line: Sinus tachycardia with Premature supraventricular Diagnosis Line: complexes Diagnosis Line: Low voltage QRS Diagnosis Line: Nonspecific T wave abnormality Diagnosis Line: Abnormal ECG Diagnosis Line: When compared with ECG of 06-APR-2016 15:35, Diagnosis Line: Premature supraventricular complexes are now Diagnosis Line: Present Diagnosis Line: Confirmed by CARMENZA CRUZ MD ([id number]) on Diagnosis Line: 04/09/2016 10:36:02 PM INTERPRETING MD: FIONA
--- NOTE | ~2016-04-07 | CR93 ---
[facility] A Service of [facility] RADIOLOGY TEXT RESULTS PATIENT: JOSE MULLIGAN LOCATION: [place] [address] : 29 UNIT #: [id number] AGE: [address]: Kodi Holloway MD SEX: F ORDER DR: [id number] [facility] [address] [facility]. [place], [place] [address] [id number] MR#: [id number] #: [id number] NAME: JOSE MULLIGAN : 1930 SEX: F STUDY DATE/TIME: 04/07/2016 21:29 UNIT: [facility] ROOM: STUDY DESCRIPTION: CR Elbow Min 3 Views Lt Attending Physician: Jessica Loredo M.D. Ordering Physician: Jessica Loredo M.D. Primary Care Physician: Mildred Perdomo MEDICAL IMAGING REPORT This report is preliminary unless electronic signature is present EXAM Left elbow 3 views HISTORY Elbow pain after fall today. Elbow injury. FINDINGS 3 views of the left elbow demonstrate moderate degenerative changes. Satisfactory bone alignment. No fracture, or effusion. Mild generalized demineralization. IMPRESSION Degenerative changes in the elbow. No acute findings. Dictated by... Jaime Hollis M.D. THIS IS AN ELECTRONICALLY VERIFIED REPORT Jaime Hollis M.D. at 04/08/2016 3:36 PM DFL/neva TD: 04/08/2016 01:27 JOB #: [id number] MEDICAL IMAGING REPORT COPY
--- NOTE | ~2016-04-07 | CO ---
Unit #: [id number] #: [id number] Patient: JOSE MULLIGAN [id number] [facility] [address] [facility]. [place], [place] [address] [id number] MR#: [id number] NAME: JOSE MULLIGAN ROOM: 462 Age: 86 Sex: F Admission Date: 04/08/2016 : 1930 Attending Physician: Deon Schroeder M.D. Primary Care Physician: Mildred Perdomo Consultation Date: 04/10/2016 CONSULTATION REPORT REASON FOR CONSULTATION Paroxysmal supraventricular tachycardia and bradycardia. HISTORY OF PRESENT ILLNESS This is an 86-year-old white female, whom we had seen a couple of years ago here at [facility] for paroxysmal supraventricular tachycardia, had a Holter monitor at that time that showed some runs of SVT and multifocal atrial tachycardia. However, no pauses, blocks, no atrial fibrillation. The patient had a normal Lexiscan and back in 2013 along with echo in 2013 that shows LVEF of 55% with mild mitral regurgitation. The patient does have COPD, history of DVT about a year ago, but currently is not on anticoagulation. Recent hospitalization earlier this month for Pseudomonas urinary tract infection, acute kidney injury, toxic metabolic encephalopathy, anemia, and hyperkalemia. The patient was up at home trying to go from one room to the next using her walker and she says she just got very weak. Her right leg gave out. She fell and since discharge on the 04/05/2016, she was having some diarrhea at home, which the family thought was getting worse. The patient injured her elbow, but x-rays are negative for any fracture. She denied any abdominal pain, nausea, vomiting, however, she has had nausea and some dry heaving on this admission. There is no melena or hematochezia. No chest pain; pain in her neck, bilateral jaws, shoulders, arms, or elbow. She denies any palpitations, dizziness, presyncope, or syncopal episodes that caused the fall. No sore throat, chest or sinus congestion. Denies cough, fever, or chills. The patient was sent home from this facility as mentioned on 04/05/2016. Since admission, Dr. Suarez has seen the patient. An EGD was performed, it was normal on last admission, but the plans are if she continues to have diarrhea, she may need a flexible sigmoidoscopy. The patient did have a drop in her hemoglobin down as low was 7.3. She has received 2 units of packed red blood cells. Her stools are negative for acute blood and negative for any C difficile. Urine culture is coming back yeast. On telemetry, it showed a run of paroxysmal supraventricular tachycardia with heart rates to 180 to 200 and then later in the day yesterday, she had sinus bradycardia, heart rate as low as 37 beats per minute. The patient is on metoprolol once a day, which she did receive yesterday before the bradycardia. Cardiology has been consulted to assist with evaluation and management. PAST MEDICAL HISTORY 1. 01/2014 Lexiscan Cardiolite stress test with LVEF of 77%. No ischemia. No infarction. 2. 01/2014, 2D echo, LVEF of 55%, mild left ventricular hypertrophy, moderate septal hypokinesis, mild mitral regurgitation, mild tricuspid regurgitation with small pericardial effusion. Unit #: [id number] #: [id number] Patient: JOSE MULLIGAN 3. 24 hour Holter in 01/2014 after syncopal episode showed normal sinus rhythm with frequent premature atrial contractions, 36 runs of SVT, multifocal atrial tachycardia. No pauses. No blocks. No atrial fibrillation. 4. Degenerative joint disease, arthritis. 5. History of DVT about a year ago after a hip fracture, not on anticoagulation. 6. Chronic immobility syndrome. 7. History of diastolic dysfunction. 8. Chronic venostasis. 9. History of meningitis. 10. Gastroesophageal reflux disease. 11. History of paroxysmal supraventricular tachycardia. 12. 04/03/[address] Suarez was normal. 13. Recent hospitalization 04/01/2016 to 04/05/2016 for Pseudomonas UTI, acute kidney injury, toxic metabolic encephalopathy, anemia, with hyperkalemia. 14. COPD, reformed smoker. PAST SURGICAL HISTORY 1. 04/03/2016 EGD, which was normal. 2. Appendectomy. 3. Cholecystectomy. 4. Hysterectomy. 5. ORIF of the right arm fracture. 6. Cataract surgery. 7. Left carpal tunnel release. 8. Left tib-fib fracture. HOME MEDICATIONS Symbicort 160/4.5 mcg one puff inhalation daily, metoprolol 25 mg p.o. daily-according to the niece that was decreased down to half a tablet a day per MD2U recently, omeprazole 20 mg p.o. daily, aspirin 81 mg p.o. daily, vitamin D3 of 2000 units p.o. daily, Visine eye drops daily, vitamin B12 of 25 mcg p.o. every week, ferrous gluconate 325 mg 1 tablet daily. ALLERGIES No known drug allergies. SOCIAL HISTORY The patient lives in her home normally alone, but she has a niece that checks on her daily. She quit smoking in 1997. No alcohol or illicit drug abuse. FAMILY HISTORY She has a sister who had myocardial infarction, otherwise unremarkable. REVIEW OF SYSTEMS See details in HPI. PHYSICAL EXAMINATION GENERAL: On exam, Ms. Mulligan is an 86-year-old white female, in no acute respiratory distress. She is awake, alert, answers most questions appropriately. VITAL SIGNS: Blood pressure is 124/70, heart rate 72, respirations 16, temperature 98.8, O2 saturations 99% on 2 L. NECK: Trachea midline. No thyromegaly or lymphadenopathy. Normal Unit #: [id number] #: [id number] Patient: JOSE MULLIGAN carotid upstrokes. No jugular venous distention. HEART: S1, S2. Irregular rate and rhythm. Soft systolic murmur at left sternal border. LUNGS: Very diminished, otherwise clear. ABDOMEN: Soft, nontender. Positive bowel sounds present. No hepatosplenomegaly. EXTREMITIES: Pedal pulses are palpable. No pedal edema. DIAGNOSTIC STUDIES LABORATORY RESULTS: Glucose 91, BUN 11, creatinine 0.7, eGFR is above 60, sodium 143, potassium is down to 3.3, chloride 114, CO2 of 20, uric acid 3.8, calcium is 8.3, total protein 4.7, albumin 2.3, AST 13, ALT 11, alkaline phosphatase is 52. TSH on 03/31/2016 was 1.05. INR is 1.2. WBC is 7.1, hemoglobin 10.6, hematocrit 31.5, and platelets 227. Initial cardiac enzymes; CK-MB 1.7, troponin less than 0.05. CK-MB is 1.9, troponin less than 0.05 that was on early admission. Urinalysis, leuk esterase trace, urobilinogen 0.2, 10 to 25 wbc's, negative bacteria. Occult stool, negative for blood. Urine culture, final yeast present. Stool negative for C difficile. Degenerative changes in the elbows, otherwise nothing acute. IMAGING STUDIES: Chest x-ray, no acute findings, no active disease. CT of the head shows no acute intracranial abnormality, stable moderate cerebral and cerebellar volume loss. CARDIOVASCULAR STUDIES: EKG shows sinus tachycardia, heart rate 107 beats per minute, with frequent premature atrial complex, poor R-wave progression, low voltage in inferior leads. Telemetry shows some runs of paroxysmal supraventricular tachycardia and some runs of sinus bradycardia, heart rate as slow as 37 beats per minute. IMPRESSION 1. Status post fall, weakness. 2. Diarrhea. 3. 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 4. Recent admission for Pseudomonas urinary tract infection and acute kidney injury and anemia and hyperkalemia and toxic metabolic encephalopathy. 5. Acute anemia of questionable etiology. Normal esophagogastroduodenoscopy on 04/03/2016. 6. History of deep venous thrombosis about a year ago, not on anticoagulation. 7. 01/2014, 2D echo, left ventricular ejection fraction of 55%, mild mitral regurgitation, moderate septal hypokinesis, mild left ventricular hypertrophy. 8. Normal stress test in 01/2014, left ventricular ejection fraction of 77%. No ischemia. 9. Chronic venous stasis. 10. Gastroesophageal reflux disease. 11. Degenerative joint disease and arthritis. 12. Chronic obstructive pulmonary disease, reformed smoker. Unit #: [id number] #: [id number] Patient: JOSE MULLIGAN PLAN 1. Cardiology consult to assist with evaluation and managing her tachybrady syndrome. 2. The patient did have a low dose of metoprolol 25 mg, which seems to help the fast rate but then she did have a period of sinus bradycardia with heart rate 37 beats per minute. Discussed with the power of civil attorney, who is niece and also the patient about the possible need in the future for permanent pacemaker. The patient wants to talk to her power of civil attorney, her niece and nephew before making that decision. TSH was done earlier this month that was normal. We will stop the metoprolol at this point because of the significant bradycardia. 3. On exam, there were no signs or symptoms of acute congestive heart failure or unstable angina. 4. Plans are for possible scope today due to her anemia. She required 2 units of packed red blood cells. Her stool for occult blood was negative. At this time, we will hold off on any anticoagulation except for she is on baby aspirin 81 mg daily otherwise. The patient is currently on oxygen 2 L. We will check O2 saturation level. If it is greater than 92%, we will stop the oxygen. 5. The patient's potassium will be replaced per protocol. We will check her magnesium level today and follow protocol. 6. Further recommendations pending per Dr. Joshi. Thank you very much for allowing us to assist in her care. Dictated by... Ruthy Dorantes/angela TD: 04/10/2016 23:51 JOB #: [id number] CONSULTATION REPORT X Simran Gastelum APRN X CONSULTATION REPORT
--- NOTE | ~2016-04-07 | A ---
[facility] Therapy DATE: 04/10/16 Patient: JOSE MULLIGAN Physician: SAMIR Address: [address] [facility] Room/Bed: [address] [place] [address], Zip: [place] [address] Admit Date: 04/08/16 Date of : 29 Height: 5 0 Weight: 105 48 NUTRITIONAL ASSESSMENT: REASON: 3 points nutrition screen risk RE: 5# weight loss and eating poorly 86 yo female admitted for near syncope, diarrhea x 2 days, fall PMH: COPD, osteoporosis, HTN, meningitis, gout, chronic venous insufficiency, cholecystectomy, appendectomy, GERD Anthropometrics: Ht: 60" Wt: 48 kg BMI: 20.7 Labs: K+ 3.3 Cl- 114 Ca++ 8.3 Alb 2.3 Meds: Vitamin B12, NaCl, ferrous gluconate, Vitamin D, protonix, lopressor, zofran I/O & Bowel function: 2735/2234, last BM 04/09 Skin Integrity: Bruising scattered/ BUE/ BLE Scrapes/ discoloration BLE Blanchable redness BL heels/ coccyx/ labia Skin tear right chest Edema: BLE trace Estimated Nutrition Needs: Increased due to PMH Diet: NPO for procedure (flex sigmoidoscopy) Assessment: Chart reviewed, events noted. 86 yo female admitted for near syncope, fall, and diarrhea. Pt was recently discharged from [facility] 04/05. RD assessed the pt during that admission on 04/04, ordered her a dental soft diet per pt request (due to missing teeth), in addition to Ensure supplements BID. Pt is NPO for a flex sigmoidoscopy, planned for today. RD triggered to see the pt for 3 points nutrition screen risk for 5# weight loss and eating poorly. Per previous nutrition assessment on 04/04, pt reported weight maintenance despite points received for weight loss. New weight loss of 5# may be attributed to noted diarrhea. Pt's standing scale weight today is 106#, which is greater than her weight of 103# previous admission. RD spoke with the pt at bedside. Pt reporting that her only question is "When can I eat?". Pt seems to have a very good appetite at this time. Pt is agreeable to Ensure BID once her diet advances, and prefers a dental soft diet, as she has missing teeth. Dx: Potential for inadequate nutrient intake RT chewing difficulty AEB need for dental [facility] Therapy DATE: 04/10/16 Patient: JOSE MULLIGAN Physician: SAMIR Address: [address] [place] [address] Room/Bed: [address] [place] [address], Zip: [place] [address] Admit Date: 04/08/16 Date of : 29 Height: 5 0 Weight: 105 48 soft diet. Intervention: 1. Dental soft diet once diet advanced 2. Ensure BID Monitoring, Evaluation and Goals: 1. Oral intake; tolerate >50-75% meals 2. Labs; WNL 3. Weight; prevent unintentional weight loss 4. Skin; prevent breakdown Recommendations: 1. Once medically feasible following GI procedure, recommend advancing the pt to a dental soft diet as tolerated. Pt requesting dental soft diet due to missing teeth. 2. Once diet advanced, please order Ensure BID with meals for supplemental nutrition. Pt is at mild-moderate nutritional risk. Respectfully, JENS SHEEHAN RD, LD Food and Nutrition[facility] Services [facility] cc: client file
[~2016-04-07 21:31] MED LIST changes: +FERROUS GL324 ( 36 ) PO
[2016-04-07 22:44] LABS: BASOPHIL# 0.1 X10e3 (0-0.3); BASOPHIL% 0.3 % (0-2.5); DIFF IND YES; EOSINOPHIL% 0.3 % (0.0-7.0); HEMATOCRIT 27.2 % (35.0-45.0); HEMOGLOBIN 8.5 gm/dL (12.0-16.0); LYMPHOCYTE# 0.8 X10e3 (1.0-3.5); LYMPHOCYTE% 4.4 % (17.0-45.0); MEAN CELL VOLUME 103.1 FL (83-96); MEAN CORPUSCULAR HEMOGLOBIN 32.3 PG (28-34); MEAN CORPUSCULAR HGB CONC 31.3 g/dL (30-36); MEAN PLATELET VOLUME 6.5 FL (6.5-11.5); MONOCYTE# 1.1 X10e3 (0-1.0); MONOCYTE% 6.5 % (3.0-12.0); NEUTROPHIL# 15.6 X10e3 (1.5-7.1); NEUTROPHIL% 88.5 % (40-75); PLATELET COUNT 349 X10e3 (140-420); RED BLOOD COUNT 2.64 X10e (3.90-5.30); RED CELL DISTRIBUTION WIDTH 15.8 % (11.0-15.5); WHITE BLOOD COUNT 17.6 X10e3 (4.0-10.5)
[2016-04-07 22:49] LABS: POC - CKMB 1.7 ng/mL (0.0-7.9); POC - TROPONIN <0.05 ng/mL (<=0.05)
[2016-04-07 22:58] LABS: ANISOCYTOSIS SL; PLATELET ESTIMATE NORMAL (NORMAL)
[2016-04-07 23:00] LABS: BUN/CREATININE RATIO 10.76; CALCIUM SERUM 9.3 mg/dL (8.4-10.2); CREATININE SERUM 1.3 mg/dL (0.6-1.4); GLOM FILT RATE Estimated 41.2 mL/min (>60); POTASSIUM 4.4 mmol/L (3.5-5.1)
[2016-04-08 05:41] LABS: URINE APPEARANCE CLEAR; URINE BILIRUBIN NEG (NEG); URINE BLOOD NEG (NEG); URINE COLOR YELLOW; URINE GLUCOSE NEG (NEG); URINE KETONE NEG (NEG); URINE LEUKOCYTE ESTERASE TRACE (NEG); URINE NITRATE NEG (NEG); URINE PROTEIN NEG (NEG); URINE SPECIFIC GRAVITY 1.018 (1.003-1.035); URINE UROBILINOGEN 0.2 MG/DL (NEG)
[2016-04-08 05:44] LABS: CULTURE INDICATED? YES; URBCS1 AUWI 0-2 /[HPF] (0-2); URINE BACTERIA AUWI NEG (NEGATIVE); URINE SQUAMOUS EPITHELIAL CELL NONE SEEN /[HPF]
[2016-04-08 05:58] LABS: U HYALINE CASTS AUWI 0-2 /[LPF]
[2016-04-08 06:16] LABS: URINE SOURCE CLEAN CATCH
[2016-04-09 02:50] LABS: BASOPHIL% 0.5 % (0-2.5); EOSINOPHIL# 0.1 X10e3 (0-0.7); EOSINOPHIL% 1.3 % (0.0-7.0); HEMATOCRIT 23.1 % (35.0-45.0); HEMOGLOBIN 7.3 gm/dL (12.0-16.0); LYMPHOCYTE# 0.8 X10e3 (1.0-3.5); LYMPHOCYTE% 10.2 % (17.0-45.0); MEAN CELL VOLUME 103.3 FL (83-96); MEAN CORPUSCULAR HEMOGLOBIN 32.5 PG (28-34); MEAN CORPUSCULAR HGB CONC 31.5 g/dL (30-36); MEAN PLATELET VOLUME 6.7 FL (6.5-11.5); MONOCYTE% 13.5 % (3.0-12.0); NEUTROPHIL# 5.8 X10e3 (1.5-7.1); NEUTROPHIL% 74.5 % (40-75); PLATELET COUNT 273 X10e3 (140-420); RED BLOOD COUNT 2.24 X10e (3.90-5.30); RED CELL DISTRIBUTION WIDTH 16.2 % (11.0-15.5)
[2016-04-09 02:56] LABS: DIFF IND YES; WHITE BLOOD COUNT 7.7 X10e3 (4.0-10.5)
[2016-04-09 03:01] LABS: BLOOD UREA NITROGEN 12 mg/dL (9-23); BUN/CREATININE RATIO 13.33; CALCIUM SERUM 8.2 mg/dL (8.4-10.2); CARBON DIOXIDE 23 mmol/L (22-31); CHLORIDE 113 mmol/L (100-111); CREATININE SERUM 0.9 mg/dL (0.6-1.4); GLOM FILT RATE Estimated ABOVE60 mL/min (>60); GLUCOSE FASTING 89 mg/dL (70-110); POTASSIUM 3.5 mmol/L (3.5-5.1); SODIUM 143 mmol/L (135-145)
[2016-04-09 03:38] LABS: MICROCYTOSIS MOD; PLATELET ESTIMATE NORMAL (NORMAL); TARGET CELLS SL
[2016-04-09 03:39] LABS: ANISOCYTOSIS SL
[2016-04-10 05:51] LABS: BASOPHIL% 0.4 % (0-2.5); EOSINOPHIL# 0.1 X10e3 (0-0.7); EOSINOPHIL% 1.9 % (0.0-7.0); HEMATOCRIT 31.5 % (35.0-45.0); LYMPHOCYTE% 14.1 % (17.0-45.0); MEAN CORPUSCULAR HGB CONC 33.6 g/dL (30-36); MEAN PLATELET VOLUME 6.9 FL (6.5-11.5); MONOCYTE% 14.6 % (3.0-12.0); NEUTROPHIL# 4.9 X10e3 (1.5-7.1); PLATELET COUNT 227 X10e3 (140-420); RED BLOOD COUNT 3.31 X10e (3.90-5.30); RED CELL DISTRIBUTION WIDTH 18.9 % (11.0-15.5); WHITE BLOOD COUNT 7.1 X10e3 (4.0-10.5)
[2016-04-10 05:58] LABS: HEMOGLOBIN 10.6 gm/dL (12.0-16.0); MEAN CELL VOLUME 95.1 FL (83-96)
[2016-04-10 06:01] LABS: DIFF IND NO
[2016-04-10 06:26] LABS: ALBUMIN SERUM 2.3 g/dL (3.5-5.0); ALKALINE PHOSPHATASE 52 U/L (32-92); ALT (SGPT) 11 U/L (10-40); AST (SGOT) 13 U/L (10-42); BILIRUBIN,TOTAL 0.8 mg/dL (0.2-2.0); BLOOD UREA NITROGEN 11 mg/dL (9-23); BUN/CREATININE RATIO 15.71; CALCIUM SERUM 8.3 mg/dL (8.4-10.2); CARBON DIOXIDE 20 mmol/L (22-31); CHLORIDE 114 mmol/L (100-111); CREATININE SERUM 0.7 mg/dL (0.6-1.4); GLOM FILT RATE Estimated ABOVE60 mL/min (>60); GLUCOSE FASTING 91 mg/dL (70-110); POTASSIUM 3.3 mmol/L (3.5-5.1); PROTEIN TOTAL SERUM 4.7 g/dL (6.0-8.3); SODIUM 143 mmol/L (135-145)
[2016-04-11 03:19] LABS: HEMATOCRIT 33.6 % (35.0-45.0); HEMOGLOBIN 10.8 gm/dL (12.0-16.0); MEAN CORPUSCULAR HEMOGLOBIN 31.2 PG (28-34); MEAN CORPUSCULAR HGB CONC 32.2 g/dL (30-36); MEAN PLATELET VOLUME 7.5 FL (6.5-11.5); RED BLOOD COUNT 3.46 X10e (3.90-5.30); RED CELL DISTRIBUTION WIDTH 19.5 % (11.0-15.5); WHITE BLOOD COUNT 6.7 X10e3 (4.0-10.5)
[2016-04-11 04:01] LABS: BLOOD UREA NITROGEN 9 mg/dL (9-23); BUN/CREATININE RATIO 12.85; CARBON DIOXIDE 20 mmol/L (22-31); CHLORIDE 117 mmol/L (100-111); CREATININE SERUM 0.7 mg/dL (0.6-1.4); GLOM FILT RATE Estimated ABOVE60 mL/min (>60); GLUCOSE FASTING 91 mg/dL (70-110); POTASSIUM 3.6 mmol/L (3.5-5.1); SODIUM 143 mmol/L (135-145)
[2016-04-13 02:00] LABS: BASOPHIL% 0.7 % (0-2.5); EOSINOPHIL# 0.3 X10e3 (0-0.7); EOSINOPHIL% 4.7 % (0.0-7.0); HEMATOCRIT 32.5 % (35.0-45.0); HEMOGLOBIN 10.6 gm/dL (12.0-16.0); LYMPHOCYTE# 1.7 X10e3 (1.0-3.5); LYMPHOCYTE% 25.4 % (17.0-45.0); MEAN CELL VOLUME 95.8 FL (83-96); MEAN CORPUSCULAR HEMOGLOBIN 31.2 PG (28-34); MEAN CORPUSCULAR HGB CONC 32.6 g/dL (30-36); MONOCYTE# 1.3 X10e3 (0-1.0); MONOCYTE% 19.1 % (3.0-12.0); NEUTROPHIL# 3.3 X10e3 (1.5-7.1); NEUTROPHIL% 50.1 % (40-75); PLATELET COUNT 220 X10e3 (140-420); RED BLOOD COUNT 3.39 X10e (3.90-5.30); WHITE BLOOD COUNT 6.6 X10e3 (4.0-10.5)
[2016-04-13 02:01] LABS: DIFF IND NO
[2016-04-13 02:44] LABS: BLOOD UREA NITROGEN 8 mg/dL (9-23); BUN/CREATININE RATIO 11.42; CALCIUM SERUM 8.2 mg/dL (8.4-10.2); CARBON DIOXIDE 22 mmol/L (22-31); CHLORIDE 114 mmol/L (100-111); CREATININE SERUM 0.7 mg/dL (0.6-1.4); GLOM FILT RATE Estimated ABOVE60 mL/min (>60); GLUCOSE FASTING 90 mg/dL (70-110); MAGNESIUM 1.6 mg/dL (1.6-3.0); POTASSIUM 4.1 mmol/L (3.5-5.1); SODIUM 138 mmol/L (135-145)
== END 2016-04-14 15:15 | DRG 392 ==
LOC: CED 21:31 → CEDOF 04-08 05:30 → C4C 04-08 06:55 → CEDOF 04-13 07:13 → C4C 04-13 07:17 → CEDOF 04-13 07:18 → C4C 04-13 07:28 → CEDOF 04-13 09:16 → C4C 04-13 09:30
PROVIDERS: Emergency Medicine; Internal Medicine; Internal Medicine Cardiovascular Disease; Internal Medicine Gastroenterology
PROC: 30233N1 Transfusion of Nonautologous Red Blood Cells into Peripheral Vein, Percutaneous Approach (ICD-10-PCS; principal; 2016-04-09)
PROC: 05HB33Z Insertion of Infusion Device into Right Basilic Vein, Percutaneous Approach (ICD-10-PCS; 2016-04-10)
PROC: B54MZZA Ultrasonography of Right Upper Extremity Veins, Guidance (ICD-10-PCS; 2016-04-10)
DX: K52.9 Noninfective gastroenteritis and colitis, unspecified (principal); I49.5 Sick sinus syndrome; I48.0 Paroxysmal atrial fibrillation; J44.9 Chronic obstructive pulmonary disease, unspecified; D64.9 Anemia, unspecified; E86.0 Dehydration; N39.0 Urinary tract infection, site not specified; I10 Essential (primary) hypertension; M10.9 Gout, unspecified; Z87.891 Personal history of nicotine dependence; K21.9 Gastro-esophageal reflux disease without esophagitis; Z91.81 History of falling; M19.90 Unspecified osteoarthritis, unspecified site; I87.8 Other specified disorders of veins; Z66 Do not resuscitate; M25.522 Pain in left elbow
CPT/HCPCS: 36415; 70450; 71010; 73080; 80048; 80053; 80076; 81003; 82274; 82553; 82947; 83735; 83880; 84132; 84484; 85025; 85027; 86850; 86900; 86901; 86923; 87086; 87493; 93005; 94640; 94664; 94760; 96361; 96374; 96375; 97110; 97116; 97162; 97166; 97530; 97535; 99284; 99285; G8978-GP; G8979-GP; G8987-GO; G8988-GO; J0692; J2405; J2550; J2916; J3475; J3480; P9016